=== PATIENT | female | born 1995 | race African-American/Black ===

== ENCOUNTER 2024-09-27 19:27 | Emergency (ER) | payer SELFPAY ==
[~2024-09-27] VITALS: Ht 160 cm; Wt 55.8 kg
[2024-09-27 19:40] VITALS: PULSE 70; RESP 18; TEMP 98.7
[2024-09-27] MEDS ORDERED: CEPHALEXIN500 MG PO (20:45)
[2024-09-27] MEDS ORDERED: FLUCONAZOLE100 MG PO (20:49)
[2024-09-27 21:05] VITALS: BP 116/68; PULSE 70; RESP 18; TEMP 98.7; O2SAT 99
== END 2024-09-27 21:05 | disposition home or self-care (01) ==
LOC: FSED 20:43
DX: R30.0 Dysuria (principal); N39.0 Urinary tract infection, site not specified; R11.2 Nausea with vomiting, unspecified; E03.9 Hypothyroidism, unspecified; Z11.52 Encounter for screening for COVID-19
CPT/HCPCS: 0223U; 81003; 81025; 87086; 87400; 99282; 87186